=== PATIENT | female | born 2000 | race Caucasian/White ===

== ENCOUNTER 2025-08-12 15:33 | Outpatient (CLI) | payer BC, SELFPAY | END 2025-08-12 15:34 | disposition home or self-care (01) | LOC: AMB 08-13 15:18 | PROVIDERS: Visit Provider Family Medicine | DX: S49.92XA Unspecified injury of left shoulder and upper arm, initial encounter (principal); V43.52XA Car driver injured in collision with other type car in traffic accident, initial encounter; Y92.410 Unspecified street and highway as the place of occurrence of the external cause | CPT/HCPCS: A0998 ==